=== PATIENT | male | born 1970 | race Caucasian/White ===

== ENCOUNTER 2020-07-15 22:01 | Outpatient (CLI) | payer MEDICAID | END 2020-07-15 22:02 | disposition critical access hospital (66) | LOC: EMS 22:01 | PROVIDERS: ATTEND Surgery | DX: R45.851 Suicidal ideations (principal) | CPT/HCPCS: A0425; A0429; A0999 ==

== ENCOUNTER 2020-07-15 22:18 | Emergency (ER) | payer MEDICAID ==
[2020-07-15] MEDS ORDERED: FOLIC ACID INJ 1 MG, THIAMINE INJ 100 MG, MAGNESIUM SULFATE 2 GM, MULTIVITAMIN 10 ML in... IV STA ×5 (22:33)
[2020-07-15] MEDS ORDERED: SODIUM CHLORIDE 0.9% 1,000 ML IV STA (22:33)
--- NOTE | 2020-07-15 22:35 | ED Physician Documentation ---
History of Present Illness - Stated complaint Stated Complaint: SI, ETOH, CP X 2 WEEKS - History obtained from History obtained from: Patient - Additonal information Additional information: Patient comes emergency department via EMS after feeling suicidal this evening. Patient has a longstanding history of alcoholism and depression/anxiety, and has been admitted to [facility] in [place] twice. His most recent admission was 5 months ago, and he stayed for about a month and a half, after which she signed himself out. Patient states he really regrets this and that he actually had felt that the treatment was going well. He had been at [facility] once before for 2 months, as well. Patient states that he does not have any sort of mental health practitioner that he sees here. He is supposed to be on metoprolol, lisinopril, clonidine, Wellbutrin, and Seroquel, but he states that once he started drinking heavily again, which was about 3 months ago, he stopped taking his medications. Patient denies any symptoms of illness otherwise. He denies any nausea or vomiting. No blood in his stools. He does note that he has been out of money, so he has been drinking less over the last few days and that he did not have any alcohol today until about an hour and a half ago. He states normally he drinks quite heavily on a daily basis. Patient is also a smoker of tobacco and occasional marijuana. No other complaints at this time. The patient does state that he thought about several different methods of potentially killing himself, but was very tempted to step out in front of a car. He denies injuring himself in any other way and states he did not overdose on any pills or drugs. Review of Systems Ten Systems: 10 systems reviewed and negative Constitutional: reports: Reviewed and negative Eyes: reports: Reviewed and negative Ears: reports: Reviewed and negative Nose: reports: Reviewed and negative Throat: reports: Reviewed and negative Cardiac: reports: Reviewed and negative Respiratory: reports: Reviewed and negative GI: reports: Reviewed and negative : reports: Reviewed and negative Skin: reports: Reviewed and negative Musculoskeletal: reports: Reviewed and negative Neurologic: reports: Reviewed and negative Psychiatric: reports: Depressed, Suicidal, Anxiety Endocrine: reports: Reviewed and negative Immunocompromised: reports: Reviewed and negative PD PAST MEDICAL HISTORY - Present Medications Home Medications: Ambulatory Orders Medication Instructions Recorded Confirmed Lisinopril [Prinivil] 07/15/20 Metoprolol Succinate [Toprol Xl] 07/15/20 QUEtiapine [SEROquel] 07/15/20 buPROPion [Wellbutrin Sr] 07/15/20 07/15/20 cloNIDine [Catapres] 07/15/20 - Allergies Allergies/Adverse Reactions: Allergies Allergy/AdvReac Type Severity Reaction Status Date / Time No Known Drug Allergies Allergy Verified 07/15/20 22:35 PD ED PE NORMAL - Vitals Vital signs reviewed: Yes - General General: Alert and oriented X 3, No acute distress - HEENT HEENT: Atraumatic, PERRL, EOMI, Moist mucous membranes - Neck Neck: Supple, no meningeal sign - Cardiac Cardiac: RRR, No murmur, Strong equal pulses - Respiratory Respiratory: Clear bilaterally - Abdomen Abdomen: Soft, Non distended, Other (Mild epigastric tenderness, no rebound or guarding.) - Back Back: No CVA TTP - Derm Derm: Normal color, Warm and dry, No rash - Extremities Extremities: No deformity, No edema, No calf tenderness / cord - Neuro Neuro: Alert and oriented X 3, information lead 2-12 intact, No motor deficit, No sensory deficit, Normal speech, Other (Minimally clinically intoxicated.) - Psych Psych: Normal mood, Normal affect Results - Vitals Vitals: Vital Signs - 24 hr 07/15/20 07/15/20 07/16/20 22:22 22:38 06:30 Temperature 37.3 C 36.8 C Heart Rate 102 H 87 64 Respiratory 20 14 Rate Blood Pressure 164/119 H 116/73 O2 Saturation 96 97 Oxygen O2 Source Room air - Labs Labs: Laboratory Tests 07/15/20 07/15/20 07/15/20 22:40 22:40 22:40 WBC 8.5 RBC 4.41 L Hgb 15.1 Hct 44.0 MCV 99.8 H MCH 34.2 H MCHC 34.3 RDW 13.3 Plt Count 275 MPV 10.3 Neut # (Auto) 5.3 Lymph # (Auto) 2.3 [place] # (Auto) 0.8 Eos # (Auto) 0.1 Baso # (Auto) 0.1 Absolute Nucleated RBC 0.00 Nucleated RBC % 0.0 Sodium 132 L Potassium 3.5 Chloride 96 L Carbon Dioxide 23 Anion Gap 13.0 BUN < 5 L Creatinine 0.5 L Estimated GFR (MDRD) 177 Glucose 106 H Calcium 9.2 Total Bilirubin 0.7 AST 39 ALT 28 Alkaline Phosphatase 64 Total Protein 7.5 Albumin 4.3 Globulin 3.2 Albumin/Globulin Ratio 1.3 Lipase 29 TSH 1.54 Nasal Adenovirus (PCR) Nasal B. parapertussis DNA (PCR) Nasal Coronavir 229E PCR Nasal Coronavir HKU1 PCR Nasal Coronavir NL63 PCR Nasal Coronavir OC43 PCR Nasal Enterovir/Rhinovir PCR Nasal Influenza B PCR Nasal Influenza A PCR Nasal Parainfluen 1 PCR Nasal Parainfluen 2 PCR Nasal Parainfluen 3 PCR Nasal Parainfluen 4 PCR Nasal RSV (PCR) Nasal B.pertussis DNA PCR Nasal C.pneumoniae (PCR) Brodie Human Metapneumo PCR Nasal M.pneumoniae (PCR) Nasal SARS-CoV-2 (PCR) Urine Opiates Screen Ur Oxycodone Screen Urine Methadone Screen Ur Propoxyphene Screen Ur Barbiturates Screen Ur Tricyclics Screen Ur Phencyclidine Scrn Ur Amphetamine Screen U Methamphetamines Scrn U Benzodiazepines Scrn Urine Cocaine Screen U Cannabinoids Screen Ethyl Alcohol 67.3 07/15/20 07/16/20 22:44 03:20 WBC RBC Hgb Hct MCV MCH MCHC RDW Plt Count MPV Neut # (Auto) Lymph # (Auto) [place] # (Auto) Eos # (Auto) Baso # (Auto) Absolute Nucleated RBC Nucleated RBC % Sodium Potassium Chloride Carbon Dioxide Anion Gap BUN Creatinine Estimated GFR (MDRD) Glucose Calcium Total Bilirubin AST ALT Alkaline Phosphatase Total Protein Albumin Globulin Albumin/Globulin Ratio Lipase TSH Nasal Adenovirus (PCR) NOT DETECTED Nasal B. parapertussis DNA (PCR) NOT DETECTED Nasal Coronavir 229E PCR NOT DETECTED Nasal Coronavir HKU1 PCR NOT DETECTED Nasal Coronavir NL63 PCR NOT DETECTED Nasal Coronavir OC43 PCR NOT DETECTED Nasal Enterovir/Rhinovir PCR NOT DETECTED Nasal Influenza B PCR NOT DETECTED Nasal Influenza A PCR NOT DETECTED Nasal Parainfluen 1 PCR NOT DETECTED Nasal Parainfluen 2 PCR NOT DETECTED Nasal Parainfluen 3 PCR NOT DETECTED Nasal Parainfluen 4 PCR NOT DETECTED Nasal RSV (PCR) NOT DETECTED Nasal B.pertussis DNA PCR NOT DETECTED Nasal C.pneumoniae (PCR) NOT DETECTED Brodie Human Metapneumo PCR NOT DETECTED Nasal M.pneumoniae (PCR) NOT DETECTED Nasal SARS-CoV-2 (PCR) NOT DETECTED Urine Opiates Screen NEGATIVE Ur Oxycodone Screen NEGATIVE Urine Methadone Screen NEGATIVE Ur Propoxyphene Screen NEGATIVE Ur Barbiturates Screen NEGATIVE Ur Tricyclics Screen NEGATIVE Ur Phencyclidine Scrn NEGATIVE Ur Amphetamine Screen NEGATIVE U Methamphetamines Scrn NEGATIVE U Benzodiazepines Scrn NEGATIVE Urine Cocaine Screen NEGATIVE U Cannabinoids Screen NEGATIVE Ethyl Alcohol PD MEDICAL DECISION MAKING - ED course Complexity details: reviewed old records, reviewed results, re-evaluated patient, considered differential, d/w patient ED course: The patient was worked up with labs and urine drug screen. The patient's ethanol level was 67 and he was given Ativan 2 mg orally to help prevent alcohol withdrawal. The patient CIWA score remained 0 throughout the night. Social work was consulted and consultation is pending at this time. Patient is signed out to oncoming emergency physician, pending social work evaluation and final disposition.
[2020-07-15 22:45] LABS: BASOPHILS # (AUTO) 0.1 10^3/uL (0.0-0.1); BASOPHILS % (AUTO) 0.7 %; EOSINOPHILS # (AUTO) 0.1 10^3/uL (0.0-0.7); EOSINOPHILS % (AUTO) 0.8 %; HGB - HEMOGLOBIN 15.1 g/dL (14.0-18.0); LYMPHOCYTES # (AUTO) 2.3 10^3/uL (1.5-3.5); MEAN CORPUSCULAR HEMOGLOBIN 34.2 pg (27.0-31.0); MEAN CORPUSCULAR HGB CONC 34.3 g/dL (32.0-36.0); MEAN CORPUSCULAR VOLUME 99.8 fL (80.0-94.0); MEAN PLATELET VOLUME 10.3 fL (7.4-11.4); MONOCYTES # (AUTO) 0.8 10^3/uL (0.0-1.0); MONOCYTES % (AUTO) 9.1 %; NEUTROPHILS # (AUTO) 5.3 10^3/uL (1.5-6.6); NEUTROPHILS % (AUTO) 62.2 %; PLT - PLATELET COUNT 275 10^3/uL (130-450); RED BLOOD COUNT 4.41 10^6/uL (4.70-6.10); RED CELL DISTRIBUTION WIDTH 13.3 % (12.0-15.0); WHITE BLOOD COUNT 8.5 x10^3/uL (4.8-10.8)
[2020-07-15 22:49] LABS: MUDS CUTOFF CONCENTRATIONS CUTOFF CONC BELOW:
[2020-07-15 22:57] LABS: ALBUMIN 4.3 g/dL (3.2-5.5); ALBUMIN/GLOBULIN RATIO 1.3 (1.0-2.2); ALKALINE PHOSPHATASE 64 IU/L (42-121); ALT ALANINE AMINOTRANSFERASE 28 IU/L (10-60); AST ASPARTATE AMINOTRANSFERASE 39 IU/L (10-42); BILIRUBIN,TOTAL 0.7 mg/dL (0.2-1.0); BUN - BLOOD UREA NITROGEN < 5 mg/dL (6-20); CALCIUM 9.2 mg/dL (8.5-10.3); CARBON DIOXIDE - CO2 23 mmol/L (21-32); CHLORIDE 96 mmol/L (101-111); CREATININE 0.5 mg/dL (0.6-1.2); GLUCOSE 106 mg/dL (70-100); LIPASE 29 U/L (22-51); SODIUM 132 mmol/L (135-145); TOTAL PROTEIN 7.5 g/dL (6.7-8.2)
[2020-07-15 23:04] LABS: AMPHETAMINE SCREEN,URINE NEGATIVE (NEGATIVE); BENZODIAZEPINES SCREEN, URINE NEGATIVE (NEGATIVE); COCAINE SCREEN URINE NEGATIVE (NEGATIVE); METHADONE SCREEN, URINE NEGATIVE (NEGATIVE); METHAMPHETAMINES SCREEN, URINE NEGATIVE (NEGATIVE); OPIATE SCREEN, URINE NEGATIVE (NEGATIVE); OXYCODONE SCREEN, URINE NEGATIVE (NEGATIVE); PROPOXYPHENE SCREEN, URINE NEGATIVE (NEGATIVE); TRICYCLIC ANTIDEPRESSANT,URINE NEGATIVE (NEGATIVE)
[2020-07-15] MEDS ORDERED: MAGNESIUM SULFATE 1 GM/2 ML VIAL ONE (23:16)
[2020-07-15] MEDS ORDERED: FOLIC ACID 5 MG/1 ML 10ML MDV ONE (23:16)
[2020-07-15] MEDS ORDERED: THIAMINE 100 MG/1 ML 2 ML MDV ONE (23:16)
[2020-07-16] MEDS ORDERED: LORazepam 1 MG TABLET PO STA (01:25)
[2020-07-16 04:12] LABS: C. PNEUMONIAE- RESP PCR PANEL NOT DETECTED
--- NOTE | 2020-07-16 07:27 | ED Physician Documentation ---
ED Addendum - Addendum Addendum: 07/16/20 07:[address] Escobar. Awaiting social work evaluation for suicidal ideation in the setting of alcohol abuse. He is resting comfortably in bed with no complaints at this time. 07/16/20 09:08 ekg rate 93. NSR with L ant fascicular block, benign early repol, otherwise normal with no ischemic changes. patient does have borderline prolonged qtc 454 therefore we will be judicious with further qt prolonging medications. NAD. on the monitor 07/16/20 13:13 We ordered a screening chest x-ray given the patient's history of chronic cough productive of clear sputum (attributed to smoking cigarettes), nighttime sweating, recent weight loss which he attributes to severe alcohol binge. He has no hx of tb, no history of immunocompromise and has not had any stays in half-way or homeless shelters. He is low risk for tb and has clear CXR Except for some emphysematous changes. Medically cleared for detox at this time. 07/16/20 14:53 Jerman, our social worker delinquency prevention has coordinated with inpatient detox and now patient has a detox bed available. He will take a cab to the center. Return precautions given.
[2020-07-16] MEDS ORDERED: chlordiazePOXIDE 25 MG CAPSULE PO STA (09:12)
[2020-07-16 09:34] LABS: MAGNESIUM 2.4 mg/dL (1.7-2.8)
[2020-07-16] MEDS ORDERED: ACETAMINOPHEN 325 MG TABLET PO STA (10:17)
[2020-07-16] MEDS ORDERED: IBUPROFEN 600 MG TABLET PO STA (12:02)
--- NOTE | 2020-07-16 12:53 | XRAY Report ---
PROCEDURE: Chest 2 View X-Ray INDICATIONS: screening for tb TECHNIQUE: 2 view(s) of the chest. COMPARISON: None. FINDINGS: Surgical changes and devices: None. Lungs and pleura: No pleural effusions or pneumothorax. Lungs are clear. Lung volumes are large an d the diaphragms are flattened suggesting emphysematous changes. Mediastinum: Mediastinal contours are normal. Heart size is normal. Bones and chest wall: No suspicious bony abnormalities. Soft tissues appear unremarkable. IMPRESSION: No acute cardiopulmonary findings. Emphysematous change. Reviewed by: Irina Palencia MD on 07/16/2020 11:[address] [facility] Approved by: Irina Palencia MD on 07/16/2020 11:[address] [facility] Station ID: [id number]
[2020-07-16 14:53] VITALS: BP 151/96
== END 2020-07-16 14:58 | disposition home or self-care (01) ==
LOC: ED 22:18
DX: R45.851 Suicidal ideations (principal); F10.10 Alcohol abuse, uncomplicated; R05 Cough; R61 Generalized hyperhidrosis; R63.4 Abnormal weight loss; F17.200 Nicotine dependence, unspecified, uncomplicated
CPT/HCPCS: 0202U; 36415; 71046; 80053; 80306; 80320; 82310; 83690; 83735; 84443; 85025; 93005; 96365; 96366; 99284; 99285; A9270; J3411; J8499